=== PATIENT | female | born 1955 | race Caucasian/White ===

== ENCOUNTER 2017-05-15 13:23 | Day surgery (SDC) | payer OTHER, SELFPAY ==
[2017-05-15 13:45] VITALS: BP 161/97; PULSE 92; RESP 16; TEMP 36.8; O2SAT 96; BMI 27.4
--- NOTE | 2017-05-15 15:47 | PCM.DC.URO ---
Discharge Diet: Light diet - advance as tolerated Discharge Activity: Return to Normal Activity Call your doctor if you observe: Fever of 101 or Higher Allergies/Adverse Reactions: Allergies latex Allergy (Verified 05/13/17 15:48) Itching ciprofloxacin [From Cipro] Adverse Reaction (Verified 07/20/15 12:54) Nausea/Vom/Diarrhea ciprofloxacin HCl [From Cipro] Adverse Reaction (Verified 07/20/15 12:54) Nausea/Vom/Diarrhea morphine Adverse Reaction (Verified 07/20/15 12:54) Itching Medications to take at Discharge Cholecalciferol (VIT D3) [Vitamin D3] 1,000 unit PO DAILY 07/20/15 L.acidoph,Paracasei, B.lactis [Probiotic] 1 each PO DAILY 07/20/15 Multivitamins,Ther W-Minerals [Multivitamin With Minerals] 1 tablet PO DAILY 07/20/15 Ubidecarenone [Coq10] 50 mg PO DAILY 07/20/15 Loratadine [Claritin] 10 mg PO DAILY 05/13/17 Losartan Potassium [Cozaar] 25 mg PO DAILY 05/13/17 [place]-3 Fatty Acids [Fish Oil] 500 mg PO DAILY 05/13/17 Hydrocodone/Acetaminophen [[place] 5-325 Tablet] 1 ea PO Q4H PRN PRN #20 tab 05/15/17 The following prescriptions were given: Hydrocodone/Acetaminophen [[place] 5-325 Tablet] 1 ea PO Q4H PRN PRN #20 tab PRN Reason: Pain Primary Care Physician: Lizabeth Alaniz MD [Primary Care Provider] - Please Follow Up With: Luis Bingham MD When: in 2 weeks, please call to make an appointment.
--- NOTE | 2017-05-15 15:49 | PCM.OPRPT ---
Problem List (1) Renal calculus, left Status: Acute Report of Operation Date of Procedure: 05/15/17 Pre-Operative Diagnosis: Left renal calculi Post-Operative Diagnosis: Same Surgery/Procedure Performed:: Left extracorporeal shockwave lithotripsy Description of Surgical Findings:: 62-year-old female taken back to the operating room after smooth induction of general anesthesia she was placed supine on the lithotripter table there was a 7 8 mm stone in the left UPJ area and this was put in the F2 focal point of the lithotripter machine once the stone was localized we did 3000 shockwaves started at a rate of 90 is been increased the power the patient then had PVC contraction so we had the gait the shockwave and then we gated the shocks for the rest of the treatments at the end of the treatment cycle we could still see the stone fragments but they broken up pretty well in the left UPJ area expect these to pass within several days or week. Decided not to leave a stent. Patient anesthetic was reversed she was taken back to PACU in good condition minus see her back in several weeks with a KUB for follow-up. Type of Anesthesia:: General Drains: none - Admit VTE Documentation VTE Present on Admission: No VTE Mechan Device Prophylaxis: SCD's
[2017-05-15 15:58] VITALS: BP 151/87; BP 161/97; PULSE 94; RESP 16; TEMP 36.7; O2SAT 95
[2017-05-15 16:00] VITALS: BP 151/103; BP 161/97; PULSE 86; RESP 18; O2SAT 98
[2017-05-15] MEDS: Ketorolac 15 MG/ML Vial IV (16:03)
[2017-05-15 16:15] VITALS: BP 156/98; BP 161/97; PULSE 83; RESP 18; O2SAT 97
[2017-05-15 16:23] VITALS: BP 161/97; BP 162/98; PULSE 91; RESP 18; TEMP 36.3; O2SAT 96
[2017-05-15 17:02] VITALS: BP 161/97
== END 2017-05-15 17:06 | disposition home or self-care (01) ==
LOC: SDC 13:24 → AC 13:24
PROVIDERS: Family Provider Family Medicine; PCP Family Medicine; Visit Provider Urology
PROC: (CPT 50590; principal; 2017-05-15 15:35)
DX: N20.0 Calculus of kidney (principal); I10 Essential (primary) hypertension; K57.92 Diverticulitis of intestine, part unspecified, without perforation or abscess without bleeding; Z87.442 Personal history of urinary calculi; Z87.440 Personal history of urinary (tract) infections; Z79.899 Other long term (current) drug therapy
CPT/HCPCS: 00873; 50590; J7120; J2405

== ENCOUNTER → 2017-06-01 07:44 | Outpatient (CLI) | payer OTHER, SELFPAY ==
--- NOTE | 2017-06-01 07:47 | RAD_ITS ---
STUDY: X-RAY - ABDOMEN/PELVIS REASON FOR EXAM: Female, 62 years old. History of left renal calculi. Post ESWL. TECHNIQUE: Two AP supine views of the abdomen and pelvis. COMPARISON: Comparison is made with prior study dated May 11, 2017. FINDINGS: Normal visualized lung bases. There is a moderate amount of colonic fecal material. The patient is status post cholecystectomy. The previously seen calcification in the region of the left ureteropelvic junction is not seen at this time. Normal soft tissue structures. There are mild degenerative changes of the visualized lumbar spine. RAD/Abdomen Single View IMPRESSION: The previously seen calcification at the left ureteropelvic junction is not seen at this time. Electronically Signed: Ismael Galvin MD at 8:31 EST Tel [phone], Service support ,
== END ==
PROVIDERS: Family Provider Family Medicine; PCP Family Medicine; Visit Provider Urology
DX: N20.0 Calculus of kidney (principal)
CPT/HCPCS: 74018

== ENCOUNTER → 2018-02-25 07:19 | Outpatient (CLI) | payer OTHER, SELFPAY ==
--- NOTE | 2018-02-25 08:00 | US_ITS ---
STUDY: THYROID ULTRASOUND REASON FOR EXAM: Female, 62 years old. Thyroid disorder TECHNIQUE: Ultrasound evaluation of the thyroid was performed with real-time and static olsen-scale imaging. COMPARISON: 07/23/2016 FINDINGS: RIGHT LOBE: The right lobe of the thyroid gland measures 4.8 x 2.0 x 2.5 cm. There is a heterogeneous echotexture. Multiple nodules noted throughout the thyroid. Largest is in the inferior pole measuring 1.4 x 1 x 1.3 cm. Predominantly solid in nature. LEFT LOBE: The left lobe of the thyroid gland measures 4.7 x 2.1 x 1.9 cm. There is a heterogeneous echotexture. Multiple small nodules, largest is in the upper pole measuring 9 x 9 x 7 mm. Complex in nature. ISTHMUS: The isthmus measures 3 mm. The regional lymph nodes are normal. US/Thyroid IMPRESSION: Stable appearance of multiple nonspecific bilateral thyroid nodules. Electronically Signed: Chavez Blanco DO at 8:51 EST Tel , Service support ,
--- NOTE | 2018-02-25 08:20 | RAD_ITS ---
STUDY: X-RAY - ESOPHAGUS (BARIUM SWALLOW) WITH FLUOROSCOPY REASON FOR EXAM: Female, 62 years old. Dysphagia. TECHNIQUE: 21 view(s) of the esophagus were obtained following swallowing of barium. FLUOROSCOPY TIME (if supplied): (0:47) minutes/seconds COMPARISON: None. FINDINGS: There is no demonstrated esophageal foreign body. There is evidence of the tertiary contractions of the mid and distal portions of the esophagus. There is no evidence of obstruction. There is narrowing at the gastroesophageal junction. The patient ingested a 12 mm tablet of barium. The tablet is trapped at the gastroesophageal junction. Correlation with endoscopy is recommended There is atherosclerotic tortuosity of the aortic arch and descending thoracic aorta. Normal visualized pulmonary parenchyma. There are diffuse degenerative changes of the visualized thoracic spine. RAD/Esophagus Only IMPRESSION: Tertiary contractions of the mid and distal esophagus with narrowing at the gastroesophageal junction. There is trapping of the 12 mm tablet of barium at the gastroesophageal junction. Correlation with endoscopy is recommended. Electronically Signed: Ismael Galvin MD at 15:37 EST Tel [phone], Service support ,
[2018-02-25 11:12] LABS: Free T3 4.3 pg/mL (2.18-3.98); T4 Free Direct 1.27 ng/dL (0.76-1.46); Thyroid Stim Hormone (TSH) 2.25 uIU/mL (0.358-3.74)
[2018-02-25 15:32] LABS: Hematocrit 40.5 % (37-47); Hemoglobin 13.5 g/dl (12.0-15.0); Mean Corp Hgb Conc 33.3 g/gl (32-36); Mean Corpuscular Hgb 29.5 pg (27.0-32.0); Mean Corpuscular Volume 88.4 fL (81-99); Platelet Count 232 K/mm3 (150-450); RBC Distribution Width CV 12.6 % (11.6-14.6); RBC Distribution Width SD 40.4 fl (35.1-43.9); Red Blood Count 4.58 M/mm3 (4.2-5.4); White Blood Count 6.3 K/mm3 (4.4-11.0)
[2018-02-25 15:35] LABS: Scan Indicated on CBC? Y/N NO
[2018-02-25 16:01] LABS: ALB/GLOB Ratio 1.1 RATIO (0.9-2.4); AST(SGOT) 22 U/L (15-37); Alanine Aminotransfer ALT/SGPT 29 U/L (13-56); Alkaline Phosphatase 73 U/L (45-117); Anion Gap 6 (5-15); BUN 14 mg/dL (7-18); BUN/Creat Ratio 20.4 RATIO (10-20); Calcium,Total 9.3 mg/dL (8.5-10.1); Chloride 105 mmol/L (98-107); Creatinine, Serum 0.69 mg/dL (0.55-1.02); EST Glomerular Filtration Rate 93 mL/min (>60); Est Glom Filt Rate - Afr Amer 112 mL/min (>60); Globulin 3.6 g/dL (2.2-4.2); Glucose 95 mg/dL (74-106); Iron 45 ug/dL (50-170); Potassium 3.8 mmol/L (3.5-5.1); Protein, Total 7.6 g/dL (6.4-8.2); Sodium Level 139 mmol/L (136-145)
[2018-02-25 16:06] LABS: Vitamin B12 494 pg/mL (211-911)
== END ==
PROVIDERS: Family Provider Family Medicine; PCP Family Medicine; Referring Provider Nurse Practitioner; Visit Provider Nurse Practitioner
DX: E07.9 Disorder of thyroid, unspecified (principal); R53.82 Chronic fatigue, unspecified; R53.81 Other malaise; R13.10 Dysphagia, unspecified
CPT/HCPCS: 36415; 74220; 76536; 80053; 82607; 83540; 84439; 84443; 84481; 85027

== ENCOUNTER → 2018-11-19 | Outpatient (CLI) | payer OTHER, SELFPAY ==
[2018-02-25 13:41] VITALS: BMI 27.0
[2018-11-19 17:39] LABS: ALB/GLOB Ratio 1.3 RATIO (0.9-2.4); AST(SGOT) 21 U/L (15-37); Alanine Aminotransfer ALT/SGPT 34 U/L (13-56); Albumin, Serum 4.3 g/dL (3.2-5.0); Alkaline Phosphatase 79 U/L (45-117); Anion Gap 7 (5-15); BUN 14 mg/dL (7-18); BUN/Creat Ratio 17.6 RATIO (10-20); Calcium,Total 9.6 mg/dL (8.5-10.1); Chloride 107 mmol/L (98-107); Cholesterol 251 mg/dL (200); EST Glomerular Filtration Rate 78 mL/min (>60); Est Glom Filt Rate - Afr Amer 94 mL/min (>60); Globulin 3.4 g/dL (2.2-4.2); Glucose 92 mg/dL (74-106); High Density Lipoprotein 46 mg/dL; Potassium 3.9 mmol/L (3.5-5.1); Protein, Total 7.7 g/dL (6.4-8.2); Sodium Level 141 mmol/L (136-145); Triglycerides 125 mg/dL; Very Low Density Lipoprotein 25 mg/dL (5-40)
== END | disposition home or self-care (01) ==
LOC: MTLAB 16:28
PROVIDERS: Family Provider Family Medicine; PCP Family Medicine; Referring Provider Family Medicine; Visit Provider Family Medicine
DX: I10 Essential (primary) hypertension (principal)
CPT/HCPCS: 36415; 80053; 80061

== ENCOUNTER → 2019-05-05 14:36 | Outpatient (CLI) | payer OTHER, SELFPAY ==
[2019-05-05 13:57] VITALS: BMI 26.9
[2019-05-05 15:42] LABS: T4 Free Direct 1.24 ng/dL (0.76-1.46); Thyroid Stim Hormone (TSH) 1.49 uIU/mL (0.358-3.74)
[2019-05-07 15:24] LABS: Thyroid Peroxidase AB 11 IU/mL (0-34)
== END ==
PROVIDERS: PCP Family Medicine; Referring Provider Internal Medicine Endocrinology, Diabetes & Metabolism; Visit Provider Internal Medicine Endocrinology, Diabetes & Metabolism
DX: E04.9 Nontoxic goiter, unspecified (principal)
CPT/HCPCS: 36415; 84439; 84443; 86376

== ENCOUNTER → 2019-11-01 | Outpatient (CLI) | payer OTHER, SELFPAY ==
[2019-05-05 16:35] VITALS: BMI 27.0
[2019-11-05 09:08] LABS: Age Gdln ACOG Testing 30-65 (.)
[2019-11-05 11:59] LABS: HPV APTIMA, High Risk Negative (Negative); HPV Reflexed? YES, CHARGE PATIENT
== END | disposition home or self-care (01) ==
LOC: LABSPEC 11:47
PROVIDERS: PCP Family Medicine; Visit Provider Obstetrics & Gynecology
DX: Z12.4 Encounter for screening for malignant neoplasm of cervix (principal)
CPT/HCPCS: 87624; 88175; G0145

== ENCOUNTER → 2019-11-07 | Outpatient (CLI) | payer OTHER, SELFPAY ==
[2019-05-05 16:35] VITALS: BMI 27.0
[2019-11-07 17:39] LABS: Anion Gap 3 (5-15); BUN 13 mg/dL (7-18); BUN/Creat Ratio 17.4 RATIO (10-20); Calcium,Total 9.9 mg/dL (8.5-10.1); Chloride 107 mmol/L (98-107); Creatinine, Serum 0.74 mg/dL (0.55-1.02); EST Glomerular Filtration Rate 84 mL/min (>60); Est Glom Filt Rate - Afr Amer 101 mL/min (>60); Glucose 92 mg/dL (74-106); Potassium 4.2 mmol/L (3.5-5.1); Sodium Level 138 mmol/L (136-145)
== END | disposition home or self-care (01) ==
LOC: MFPLAB 15:11
PROVIDERS: PCP Family Medicine; Referring Provider Family Medicine; Visit Provider Family Medicine
DX: I10 Essential (primary) hypertension (principal)
CPT/HCPCS: 36415; 80048

== ENCOUNTER → 2019-11-17 | Outpatient (CLI) | payer OTHER, SELFPAY ==
[2019-05-05 16:35] VITALS: BMI 27.0
--- NOTE | 2019-11-17 07:20 | BI_ITS ---
MAMMOGRAPHY - BILATERAL SCREENING REASON FOR EXAM: Female, 64 years old. Routine annual screening examination. PERTINENT HISTORY: Non-contributory. History of prior bilateral breast reduction surgery. TECHNIQUE: Digital bilateral breast martha (3D mammographic acquisition) in the CC and MLO projections. 2-D mediolateral oblique (MLO) and craniocaudad (CC) views of both breasts were obtained. CAD: Full Field Digital Mammography with Computer Added Detection was performed. COMPARISON: Comparison is made with prior examination dated 01/02/2014 and 09/27/2012. FINDINGS: Breast Composition: The breasts are heterogeneously dense, which may obscure small masses. There are no dominant masses or suspicious calcifications. Stable small benign appearing bilateral axillary lymph nodes. No other significant abnormalities are identified. There has been no significant change since the prior study. BI/SCREEN MAMM (CAD) W/MARTHA BILAT IMPRESSION: Stable bilateral screening mammogram. Yearly follow-up mammogram recommended. (A) ASSESSMENT CATEGORY: BIRADS Category 2: Benign. A letter regarding these results will be sent to the patient by the facility within 30 days. Approximately 10% of breast cancers are not detected by mammography. A normal mammogram should not delay biopsy of a clinically suspicious abnormality. [id number] Electronically Signed: Ismael Galvin, at 8:39 EDT , Service support ,
== END | disposition home or self-care (01) ==
LOC: OPBI 07:05
PROVIDERS: PCP Family Medicine; Referring Provider Obstetrics & Gynecology; Visit Provider Obstetrics & Gynecology
DX: Z12.31 Encounter for screening mammogram for malignant neoplasm of breast (principal)
CPT/HCPCS: 77063; 77067

== ENCOUNTER → 2020-03-09 17:20 | Outpatient (CLI) | payer OTHER, SELFPAY ==
[2019-05-05 16:35] VITALS: BMI 27.0
--- NOTE | 2020-03-09 17:31 | CT_ITS ---
STUDY: CT ABDOMEN AND PELVIS WITH CONTRAST REASON FOR EXAM: Female, 64 years old. LLQ pain x 3 months, hx diverticulosis, cholecystectomy RADIATION DOSAGE (If Supplied By Facility): CTDIvol = ( 12.83 ) mGy, DLP = ( 755.87 ) mGycm TECHNIQUE: Transaxial images were obtained from the dome of the diaphragm to the symphysis pubis without oral contrast. Oral and amp;amp;amp; IV Readi-CAT and amp;amp;amp; 100mL Isovue-300 was administered. Sagittal and coronal images were reconstructed. Individualized dose optimization techniques were used for this CT. COMPARISON: None. FINDINGS: The visualized lung bases are unremarkable. The visualized portions of the heart are within normal limits. There are 2 liver cysts the largest measures 7 mm. There are surgical clips in the gallbladder fossa consistent with a prior cholecystectomy. Normal spleen. Normal pancreas. Normal bilateral adrenal glands. Bilateral renal cysts are noted the largest measures 2 cm is in the right kidney. Normal visualized stomach. Normal small intestine. Normal colon. The appendix is visualized and appears normal. Normal abdominal aorta. Normal inferior vena cava. Normal retroperitoneum. Normal urinary bladder. Normal abdominal wall. Normal osseous structures. CT/Abdomen/Pelvis WITH Contrast IMPRESSION: There are 2 liver cysts the largest measures 7 mm. Bilateral renal cysts are noted the largest measures 2 cm is in the right kidney. Electronically Signed: Shadia Henriquez, at 8:19 EST Tel , Service support ,
[2020-03-09 17:41] LABS: CREATININE FINGERSTICK 0.8 mg/dL (0.55-1.02); EGFR FINGERSTICK > 60.0000 mL/min (>60)
== END ==
PROVIDERS: PCP Family Medicine; Referring Provider Family Medicine; Visit Provider Family Medicine
DX: R10.9 Unspecified abdominal pain (principal)
CPT/HCPCS: 74177; Q9967

== ENCOUNTER 2020-05-23 18:00 | Outpatient (RCR) | payer OTHER, SELFPAY ==
[2019-05-05 16:35] VITALS: BMI 27.0
--- NOTE | 2020-04-24 09:24 | HP.PTEVAL_ITS ---
Patient's Visit Information ZACH PHILLIPS is a 64 year old F referred to Physical Therapy by Dr. Lizabeth Alaniz MD with a diagnosis of L chest wall pain. Date of Evaluation: 04/18/20 Physical Therapist: Milton Del Valle DPT - Visit Plan Frequency: 1-2x /Week Duration: 6 Weeks Plan: Start with US to posterior aspect of 11th/12th ribs and erector spinea. Work on thoracic mobility as tolerated. I had her get an tj wrap to use for stability with work activities. Once pain as started to reduce, introduce core stability. May work into some rib mobilization, but I want to start less aggressive due to higher levels of pain. - Subjective Pt. is here today for her initial evaluation with diagnosis of L chest wall pain. Pt. reports reports a 5 months ago she fell when she tripped at work and fell on her L side, but felt like she caught her self a bit. Pt. reprots having a lot of bruising on her L side, which is now gone. Pt. reprots still having pain that starts at her mid thoracic spine that wraps around to her anterior chest wall. Pt. reports pain with lifting, raising her arm, mild pain with deep breating and any pressure to her ribs is painful. Pt. denies N/T. Pt. reports no pain in shoulder. 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 Pt. has had a CT scan, but no xrays. Pt. is hopeful to reduce her symptoms in order to get back to all work and recreational activities without limitations. - Pain L lower thoracic spine Pain Intensity (Out of 10): 4 Pain Intensity Range: 2, 6 L side of 11/12th ribs Pain Intensity (Out of 10): 4 Pain Intensity Range: 1, 8 - Objective POSTURE: Pt. has normal posture in stance. Normal iliac crest heights, normal thoracic posture. PALPATION: Pt. is very tender at her 12th and 11th ribs throughouts. Pt. also has tenderness at the rib origin as well and her L thoracic erector spinea. NEURO: Normal throughout. ROM: thoracic spine: Pt. has normal flexion, mod loss with L rotation, mod loss with extension and mod loss with R SB. Pain as her limiting factor. Pt. has normal lumbar ROM without limitations. Normal shoudler ROM without limitations. MMT: RUE- 5/5 throughout. L UE 4+/5 with increase in pain at L lateral thoracic chest pain (rib region). SPECIAL TESTING: Pt. has increased pain at T9-T12 with PAs, resulting in local pain, but also radiating pain into her L rib region. Pt. is tender throughout 11th and 12th ribs on L side, no R sided pain. - Special Tests Thoracic Sitting: Flexion - Mechanical Response: No effect Thoracic Sitting: Flexion - Symptoms During Testing: No effect Thoracic Sitting: Flexion - Symptoms After Testing: No effect Thoracic Sitting: Extension - Mechanical Response: No effect Thoracic Sitting: Extension - Symptoms During Testing: Increases Thoracic Sitting: Extension - Symptoms After Testing: Worse Thoracic Sitting: Right rotation - Mechanical Response: No effect Thoracic Sitting: Right Rotation - Symptoms During Testing: Increases Thoracic Sitting: Right Rotation - Symptoms After Testing: Worse Thoracic Sitting: Left rotation - Mechanical Response: No effect Thoracic Sitting: Left Rotation - Symptoms During Testing: Increases Thoracic Sitting: Left Rotation - Symptoms After Testing: Worse - Goals Goal 1:: LTG: pt. to be I with HEP. Goal Time Frame: 4-6 Weeks Goal 2:: STG: Pt. to sleep on L side without increase in symptoms. Goal Time Frame: 2-4 Weeks Goal 3:: LTG: Pt. to complete all work related duties inlcuing lifting over head, carrying, bending over and lifting heavier objects from floor to waist height. Goal Time Frame: 4-6 Weeks Goal 4:: STG: Pt. to have increased thoracic mobility to full without increase in symptoms. Goal Time Frame: 2-4 Weeks Goal 5:: LTG: Pt. to have no pain with all UE strength testing. Goal Time Frame: 4-6 Weeks Goal 6:: STG: pt. to have decreased pain to palpation of L 11th/12th ribs. Goal Time Frame: 2-4 Weeks - Rehabilitation Potential Physical Therapy Diagnosis: Pt. has signs and symptoms consistent with L chest wall pain from mechanical fall. Pt. is very tender to palpation of L distal ribs and pain with spring at her lower thoracics spine, hypomobility noted in this region as well. I would like to work on reducing symptoms, progressing to thoracic mobility as tolerated. Rehabilitation Potential: Good - Anticipated Interventions Patient/Client Instruction: Educate patient on: Condition, Plan of Care, Risk Factors, Benefits of Fitness Program For the Purpose of:: To facilitate caregiver knowledge, To improve self management, To prevent re-injury, To improve ability to perform tasks related to life management, To improve tolerance to ADL's Therapeutic Exercise to Include: Strength training, Postural training, Flexibilty training, Passive ROM, Active ROM, Dynamic Lumbar Stabilization, Karen Exercises For the Purpose of:: To decrease pain, To decrease swelling/inflammation, To increase ROM, To improve nutrient delivery to tissue, To increase oxygenation perfusion, To improve muscle performance and motor function, To improve ability to perform ADL's, To increase tolerance to activity/condition/position, To improve health of tissue, To decrease soft tissue restriction Manual Therapy Techniques to Include: Mobilization, Passive ROM, Soft tissue m obilization For the Purpose of:: To decrease pain, To increase ROM, To improve nutrient delivery to tissue, To increase oxygenation perfusion, To improve muscle performance and motor function, To improve ability to perform ADL's, To improve health of tissue, To decrease soft tissue restriction, To increase flexibility/ROM Ultrasound (thermal/non thermal): Yes For the Purpose of:: To decrease pain, To decrease swelling/inflammation, To increase ROM, To improve nutrient delivery to tissue, To increase oxygenation perfusion, To improve muscle performance and motor function Thank you for the opportunity to evaluate your patient. For Medicare and Medicare HMO plans, please review the plan of care and approve it. It will need to be FAXED BACK to us at [phone] for Medicare purposes. For Medicare only, by signing this I certify the plan of care. Please let me know if there are questions or concerns regarding this plan of care. Physician Signature: Date:
== END 2020-05-23 19:00 | disposition home or self-care (01) ==
LOC: PT 18:00
PROVIDERS: PCP Family Medicine; Referring Provider Family Medicine; Visit Provider Family Medicine
DX: R07.89 Other chest pain (principal)
CPT/HCPCS: 97035; 97110; 97161

== ENCOUNTER → 2020-11-29 | Outpatient (CLI) | payer OTHER, SELFPAY ==
[2019-05-05 16:35] VITALS: BMI 27.0
[2020-12-01 09:13] LABS: H. PYLORI STOOL AG Negative (Negative)
== END | disposition home or self-care (01) ==
LOC: LABSPEC 10:42
PROVIDERS: PCP Family Medicine; Visit Provider Nurse Practitioner Family
DX: K52.9 Noninfective gastroenteritis and colitis, unspecified (principal)
CPT/HCPCS: 87177; 87209; 87493

== ENCOUNTER → 2020-12-05 10:22 | Outpatient (CLI) | payer OTHER, SELFPAY ==
[2019-05-05 16:35] VITALS: BMI 27.0
--- NOTE | 2020-12-05 10:39 | US_ITS ---
STUDY: ABDOMINAL ULTRASOUND REASON FOR EXAM: Female, 65 years old. GASTROENTERITIS-ABD PAIN LT SIDED TECHNIQUE: Transabdominal ultrasound was performed with real-time and static olsen scale imaging. TECHNICAL QUALITY: Adequate. COMPARISON: Comparison is made with prior study on 07/25/2016. FINDINGS: Liver: The liver measures 14.7 cm. There is normal echogenicity of the liver. The bile ducts are within normal limits. There is hepatic color flow. The direction of portal flow is hepatopetal. There is no demonstrated mass lesion. Portal vein measurement: Gallbladder: The patient is status post cholecystectomy. Common Bile Duct (C.B.D.): The common bile duct measures 7 mm. Pancreas: Normal size of the head, body and tail of the pancreas. There is normal echogenicity of the pancreas. There is no demonstrated pancreatic mass or cyst. Spleen: Normal size of the spleen. The spleen measures 10.8 cm x 4 cm x 4.8 cm. Right Kidney: Normal size of the right kidney. The right kidney measures 10.6 cm x 5.5 cm x 4.6 cm. Normal renal cortex. The right cortex measures 1.5 cm. There is a 1.5 cm x 1.4 cm x 1.7 cm cyst. There is no right hydronephrosis. Left Kidney: Normal size of the left kidney. The left kidney measures 12 cm x 5.1 cm x 5.1 cm. Normal renal cortex. The left cortex measures 1.4 cm. There is no demonstrated renal mass or cyst. There is no left hydronephrosis. Aorta: Unremarkable I.V.C.: The IVC is patent. There is no ascites. US/Abdomen Complete IMPRESSION: Right renal cyst. Electronically Signed: Ismael Galvin MD at 15:24 EDT , Service support ,
== END ==
PROVIDERS: PCP Family Medicine; Referring Provider Nurse Practitioner Family; Visit Provider Nurse Practitioner Family
DX: K52.9 Noninfective gastroenteritis and colitis, unspecified (principal)
CPT/HCPCS: 76700

== ENCOUNTER → 2021-02-05 15:11 | Outpatient (CLI) | payer OTHER, SELFPAY ==
[2021-02-05 18:30] LABS: CRP < 2.90 mg/L (0.0-3.0)
[2021-02-07 17:07] LABS: Endomysial Antibody IgA Negative (Negative)
[2021-02-08 08:18] LABS: Immunoglobulin A 171 mg/dL (87-352); t-Transglutaminase IgA <2 U/mL (0-3)
== END ==
PROVIDERS: PCP Family Medicine; Referring Provider Internal Medicine Gastroenterology; Visit Provider Internal Medicine Gastroenterology
DX: R19.7 Diarrhea, unspecified (principal)
CPT/HCPCS: 36415; 82784; 83516; 86140; 86255

== ENCOUNTER 2021-10-01 11:51 | Emergency (ER) | payer OTHER, SELFPAY ==
[2021-10-01 11:52] VITALS: BP 216/117; PULSE 100; RESP 18; TEMP 36.6; O2SAT 98; BMI 28.3
[2021-10-01 12:33] VITALS: BP 155/137
--- NOTE | 2021-10-01 12:50 | EKG12_ITS ---
Test Reason : Blood Pressure : / mmHG Vent. Rate : 105 BPM Atrial Rate : 105 BPM P-R Int : 142 ms QRS Dur : 090 ms QT Int : 338 ms P-R-T Axes : 034 -12 026 degrees QTc Int : 446 ms Sinus tachycardia Otherwise normal ECG Confirmed by PREETI CHAMBERLAIN, JUWAN ([id number]), commissioning editor LUIZ MOJICA ([id number]) on 10/02/2021 10:12:48 AM Referred By: TIANA/ALFA Confirmed By:JUWAN ÁLVAREZ MD
--- NOTE | 2021-10-01 12:55 | RAD_ITS ---
STUDY: X-RAY CHEST REASON FOR EXAM: Female, 66 years old. Chest pain TECHNIQUE: Single AP portable view of the chest. COMPARISON: Comparison is made with prior study dated 07/20/2015. FINDINGS: The lungs are clear and expanded. There is no demonstrated pleural abnormality. There is borderline cardiomegaly. Normal mediastinum and brett. Normal visualized pulmonary arteries. There is atherosclerotic tortuosity of the aortic arch and descending thoracic aorta. Normal visualized thoracic spine. Normal visualized ribs, clavicles, and shoulders. Hiatal hernia. RAD/Chest 1 View (Portable) IMPRESSION: No acute abnormality is seen. Hiatal hernia. Electronically Signed: Ismael Galvin MD at 13:09 EDT ,
[2021-10-01 13:03] LABS: Absolute Lymphocyte Count 0.87 X10^3/uL (0.83-4.51); Absolute Neutrophil Count 5.4 X10^3/uL (2.0-7.7); Basophil# 0.03 X10^3/uL; Basophil% 0.4 % (0-1); Eosinophil# 0.15 X10^3/uL; Eosinophils% 2.2 % (0-5); Hematocrit 41.7 % (37-47); Lymphocyte # 0.87 X10^3/ul (0.83-4.51); Lymphocyte % 12.7 % (19-41); Mean Corp Hgb Conc 33.6 g/dL (32-36); Mean Corpuscular Hgb 29.4 pg (27.0-32.0); Mean Corpuscular Volume 87.4 fL (81-99); Mean Platelet Vol. 9.6 fl (6.2-12.0); Monocyte# 0.37 X10^3/uL; Monocyte% 5.4 % (0-10); NRBC Flagged by Analyzer 0 % (0-5); Neutrophil # 5.39 X10^3/uL (2.7-7.7); Neutrophil % 78.9 % (47-70); Platelet Count 198 K/mm3 (150-450); RBC Distribution Width SD 38.8 fl (35.1-43.9); Red Blood Count 4.77 M/mm3 (4.2-5.4); White Blood Count 6.8 K/mm3 (4.4-11.0)
[2021-10-01] MEDS: Aspirin 81 MG TAB.CHEW 324 MG PO (13:10)
[2021-10-01 13:15] LABS: Anion Gap 3 (5-15); BUN 13 mg/dL (7-18); Calcium,Total 9.6 mg/dL (8.5-10.1); Chloride 107 mmol/L (98-107); Creatinine, Serum 0.72 mg/dL (0.55-1.02); EST Glomerular Filtration Rate 86 mL/min (>60); Est Glom Filt Rate - Afr Amer 104 mL/min (>60); Estimated Creatinine Clearance 71.03 ml/min; Glucose 119 mg/dL (74-106); Potassium 3.6 mmol/L (3.5-5.1); Sodium Level 139 mmol/L (136-145); Troponin-I HS (w/2H Reflex) 7 pg/mL (3.0-54.0)
[2021-10-01 14:15] VITALS: BP 148/84; PULSE 80; RESP 18; O2SAT 95
[2021-10-01 15:00] LABS: Reflex Troponin-HS? (from REC) Y
--- NOTE | 2021-10-01 15:12 | EX.ED.DYSGE1 ---
HPI History of Present Illness Chief Complaint: Hypertension Informant: patient Narrative Narrative: Patient presents secondary to hypertension as well as intermittent chest pain for the past 2 weeks. She is been having periods of intermittent dizziness with exertion that gets better when she sits to rest. She is had some intermittent upper chest pain but denies pain at this time. She does note that her blood pressure has been quite elevated recently. She has been on losartan 25 mg daily for some time with no recent change in her medication. PFSH PFS Medical History Anxiety and depression Contact dermatitis due to poison [place] Fibromyalgia Gallstones GI problem Hives HTN (hypertension) Kidney stones Multiple thyroid nodules Recurrent UTI Seasonal allergies Home Medications loratadine 10 mg PO DAILY 05/13/17 [History Last Taken Unknown] diphenhydramine HCl 25 mg capsule 25 mg PO QHS PRN 02/03/18 [History Last Taken Unknown] loperamide 1 mg/7.5 mL oral liquid 2 mg PO Q1-4H PRN 02/03/18 [History Last Taken Unknown] losartan 25 mg tablet 25 mg PO DAILY 02/25/18 [History Last Taken Unknown] prednisolone 15 mg/5 mL oral solution 15 mg PO DAILY #90 ml 09/12/21 [Rx Last Taken Unknown] Allergy/AdvReac Type Severity Reaction Status Date / Time latex Allergy Itching Verified 10/01/21 11:53 ciprofloxacin [From Cipro] AdvReac Nausea/Vom/ Verified 10/01/21 11:53 Diarrhea ciprofloxacin HCl AdvReac Nausea/Vom/ Verified 10/01/21 11:53 [From Cipro] Diarrhea morphine AdvReac Itching Verified 10/01/21 11:53 Family History Mother Arthritis Diabetes Hypertension Dementia Hyperlipidemia Thyroid disorder Osteoporosis CVA (cerebral vascular accident) Father Lung cancer Abdominal aortic aneurysm COPD (chronic obstructive pulmonary disease) Brother Asthma Son Asthma Surgical History H/O bilateral breast reduction surgery H/O lithotripsy H/O: Hx of cholecystectomy Social History Smoking Status: Never smoker second hand exposure: No alcohol intake: current alcohol intake frequency: a few times a month substance use type: does not use ROS ROS ED Constitutional Constitutional ED: Denies chills or fever(s) Eyes Eyes: Denies change in vision ENT ENT ED: Denies sore throat Cardiovascular Cardiovascular: Denies chest pain Respiratory/Chest Respiratory/Chest: Denies cough or dyspnea Gastrointestinal Gastrointestinal: Denies abdominal pain, nausea or vomiting Genitourinary Genitourinary ED: Denies dysuria Musculoskeletal Musculoskeletal: Denies back pain or neck pain Integumentary Denies rash Neurologic Neurologic: Denies headache(s) or weakness Allergic/Immunologic Allergic/Immunologic ED: Denies urticaria EXAM Physical Exam Const Vital Signs: 10/01/21 11:52 10/01/21 12:33 10/01/21 14:15 Temperature 97.8 F Temperature Source Temporal Pulse Rate 100 80 Respiratory Rate 18 18 Blood Pressure 216/117 H 155/137 H 148/84 H Blood Pressure Mean 150 143 105 Pulse Ox 98 95 Oxygen Delivery Method Room Air Room Air 10/01/21 14:16 10/01/21 15:26 10/01/21 16:15 Temperature Temperature Source Pulse Rate 81 Respiratory Rate 16 Blood Pressure 135/93 H 128/85 H Blood Pressure Mean 107 99 Pulse Ox 96 Oxygen Delivery Method Room Air Room Air Positive well nourished and well developed General Appearance ED: well developed HEENT Reports moist mucous membranes Eyes PERRL and EOMs intact bilaterally Neck supple Chest Wall inspection of chest normal and palpation of chest normal Resp normal respiratory effort and clear to auscultation bilaterally Cardio regular rate and regular rhythm GI non-tender Palpation: soft Back/Spine no CVA tenderness Extremity normal to inspection Neuro oriented x3 Sensorium / Orientation: alert Psych mental status grossly normal Skin no rashes or lesions noted MDM MDM MDM Narrative Medical decision making narrative: EKG, chest x-ray, lab work obtained. Lab Data Attestation: I reviewed the patient's lab results. Labs: Laboratory Results - last 24 hr 10/01/21 10/01/21 12:35 12:35 WBC 6.8 RBC 4.77 Hgb 14.0 Hct 41.7 MCV 87.4 MCH 29.4 MCHC 33.6 RDW Std Deviation 38.8 RDW Coeff of Neymar 12.0 Plt Count 198 MPV 9.6 Immature Gran % (Auto) 0.400 Neut % (Auto) 78.9 H Lymph % (Auto) 12.7 L [place] % (Auto) 5.4 Eos % (Auto) 2.2 Baso % (Auto) 0.4 Absolute Neuts (auto) 5.4 Absolute Lymphs (auto) 0.87 Nucleated RBC % 0 Sodium 139 Potassium 3.6 Chloride 107 Carbon Dioxide 29.0 Anion Gap 3 L BUN 13 Creatinine 0.72 Estim Creat Clear Calc 71.03 Est GFR (MDRD) Af Amer 104 Est GFR (MDRD) Non-Af 86 BUN/Creatinine Ratio 18.0 Glucose 119 H Calcium 9.6 Troponin I High Sens 7 Radiography Chest X-Ray - ED: 1 View, Read by ED Physician, Normal, Heart, Lungs and Mediastinum Diagnostic Testing: Clinical Impression(s) from Imaging Studies Chest X-Ray 10/01/21 12:55 IMPRESSION: No acute abnormality is seen. Hiatal hernia. Electronically Signed: Ismael Galvin MD at 13:09 EDT , EKG Initial EKG: Attestation: I personally reviewed and interpreted this EKG as follows: Interpretation: Sinus Tachycardia (Sinus tach at 105 with no acute ischemia.) Treatment and Re-Evaluation Narrative: On repeat evaluation patient resting comfortably. Initial lab work unremarkable with a troponin of 7. EKG reveals no ischemia. Chest x-ray unremarkable per my interpretation. Patient's blood pressure was initially quite elevated at 216 systolic. She states she does have whitecoat syndrome. It came down to 160s without any intervention. I was going to give her 5 mg of Lopressor, however when we went back to recheck her blood pressure it came down into the 140s and as low as 128 systolic without requiring the medication. Repeat troponin is obtained and returns at 14.1. Delta is less than 20 therefore she is safe to be discharged home for close follow-up. Return instructions were given. Discharge Plan Triage Chief Complaint: Hypertension ED Provider: Alayna Pierre Dx/Rx/DC Orders Clinical Impression: Chest pain, Hypertension Instructions: ED Chest Pain, Uncertain Cause, ED Hypertension, Established Prescriptions: No Action losartan 25 mg tablet 25 mg PO DAILY RF: 0 diphenhydramine HCl [Benadryl] 25 mg capsule 25 mg PO QHS PRNRF: 0 loperamide [Imodium A-D] 1 mg/7.5 mL liquid 2 mg PO Q1-4H PRNRF: 0 prednisolone 15 mg/5 mL solution 15 mg PO DAILY Qty: 90 RF: 0 loratadine 10 MG tablet 10 mg PO DAILY RF: 0 Primary Care Provider: Lizabeth Alaniz Referrals: Lizabeth Alaniz MD [Primary Care Provider] - 1 Week Disposition Disposition: Home, Self Care
[2021-10-01 15:26] VITALS: BP 135/93; PULSE 81; RESP 16; O2SAT 96
[2021-10-01 16:15] VITALS: BP 128/85
[2021-10-01 16:55] VITALS: BP 135/96; PULSE 75; RESP 16; O2SAT 98
[2021-10-01 16:59] LABS: Troponin-I HS 14 pg/mL (3.0-54.0)
== END 2021-10-01 16:55 | disposition home or self-care (01) ==
PROVIDERS: Emergency Provider Emergency Medicine; PCP Family Medicine; Visit Provider Emergency Medicine
DX: R07.9 Chest pain, unspecified (principal); I10 Essential (primary) hypertension
CPT/HCPCS: 71045; 80048; 84484; 85025; 93005; 99284; A4216

== ENCOUNTER → 2021-10-23 | Outpatient (CLI) | payer OTHER, SELFPAY ==
[2021-10-23 12:40] LABS: AST(SGOT) 25 U/L (15-37); Alanine Aminotransfer ALT/SGPT 31 U/L (13-56); Cholesterol 263 mg/dL (200); High Density Lipoprotein 42 mg/dL; Triglycerides 189 mg/dL; Very Low Density Lipoprotein 38 mg/dL (5-40)
== END | disposition home or self-care (01) ==
LOC: MFPLAB 10:56
PROVIDERS: PCP Family Medicine; Visit Provider Family Medicine
DX: E78.00 Pure hypercholesterolemia, unspecified (principal)
CPT/HCPCS: 36415; 80061; 84450; 84460

== ENCOUNTER → 2022-02-26 | Outpatient (CLI) | payer OTHER, SELFPAY ==
--- NOTE | 2022-02-26 11:51 | RAD_ITS ---
STUDY: X-RAY - LEFT KNEE REASON FOR EXAM: Female, 66 years old. Leg pain. TECHNIQUE: 4 view(s) of the knee. COMPARISON: None. FINDINGS: Osteopenia. Mild arthrosis of the medial compartment without osteophytes. Mild arthrosis of the lateral compartment without osteophyte formation. Slight lateral tilt and subluxation of the patella with mild arthrosis of the patellofemoral compartment. The soft tissue structures are normal. RAD/Knee 4 or More Views IMPRESSION: Osteopenia with mild tricompartmental arthrosis. No acute abnormality, chondrocalcinosis or erosive changes. Electronically Signed: Tarik Figueroa, at 15:45 EST ,
--- NOTE | 2022-02-26 12:06 | RAD_ITS ---
STUDY: X-RAY - PELVIS AND LEFT HIP REASON FOR EXAM: Female, 66 years old. Leg pain. TECHNIQUE: 3 views of the pelvis and hip. COMPARISON: None. FINDINGS: There is a non-specific bowel gas pattern. Normal visualized soft tissue structures. Osteopenia. Normal bilateral iliac wings, sacroiliac joints and visualized sacrum. Normal bilateral superior and inferior pubic rami. Mild arthrosis of the symphysis pubis. Normal bilateral ischial tuberosities. Mild arthrosis of both hips. RAD/HIP, UNI W/ Pelvis 2-3 Views IMPRESSION: Osteopenia with mild arthrosis of the symphysis pubis and both hips. No acute abnormality, evidence of erosive changes or fusion. Electronically Signed: Tarik Figueroa, at 15:46 EST ,
== END | disposition home or self-care (01) ==
LOC: MTRAD 11:50
PROVIDERS: PCP Family Medicine; Referring Provider Family Medicine; Visit Provider Family Medicine
DX: M79.605 Pain in left leg (principal)
CPT/HCPCS: 73502; 73564

== ENCOUNTER 2022-03-19 08:00 | Outpatient (RCR) | payer OTHER, SELFPAY ==
--- NOTE | 2022-03-06 18:51 | HP.PTEVAL_ITS ---
Patient's Visit Information ZACH PHILLIPS is a 66 year old F referred to Physical Therapy by Dr. Lizabeth Alaniz MD with a diagnosis of L leg pain. Date of Evaluation: 03/06/22 Physical Therapist: GARRETT DiazT, OCS, CSCS - Visit Plan Frequency: 3x /Week Duration: 2-4 Weeks Plan: Pt presentss as HS strain today although mechanism of injury does not match(no HAILEY). will treat 3x/week for 2-4 weeks for/... 1. HS rollout/massage L and stretch with L knee ROM. 2. isometric L HS ex progressing as tolerated to PRE. 3. US nonthermal to L HS distal mid substance. 4. gait and functional progression when needed. - Subjective L knee pain for weeks. Forgot script today. Has OA in hip and knee. X ray showed degenerative changes and osteophytes. Not sure of reason for onset. Pain is back o f L knee and calf and HS. Pain is up to 8/10 getting up in am. Gets better as the day goes on if she keeps moving. getting up from sitting down is the worst. Sleep is interrupted as it is hard to get comfy. Retired. No other treatments, takes tylenol, had x ray. Was walking 6000 steps a day prior and yoga poses. Cannot do those now. Hobbies include gardening, walking and baking more and baking is painful but tolerable. Bending knee really hurts. basic ADLS getting done, hard to get off toilet and sit down low. Dr Alaniz sent for left L pain. - Pain L post leg Pain Intensity (Out of 10): 4 Pain Intensity Range: 3, 8 - Objective Walks with stiff left leg unwiliig to bend knee at first but I into PT. Sit to stand keep L knee as straight as possible but I. Steps prefers to use R only up and down. Painful to use L. Max tender over distal body of L HS. Max apinful and unable to hold contraction of L HS in prone and seated. -40 90/90 test L and -15 R. has full aROM B knees but hesitant to actively bend L knee. hip and ankle AROM WFL and without pain. - valgus and varus test, - bounce home, - ant drawer, - scour, slight + L patellar grind. strength L HS 3- and L quad 4-, pain with HS, R knee is 4/5. reflexes 2/3 patella and achilles. Sensation WNL to gross light touch. - Balance/Special Test Scores Lower Extremity Functional Score: 28 - Goals Goal 1:: Full aROM L knee without hesitation in standing Goal Time Frame: 2-4 Weeks Goal 2:: patient feel knee/leg pain L is 90% improved and 1/10 at worst and comfortable at rest. Goal Time Frame: 2-4 Weeks Goal 3:: Walk and climb steps normal without antalgia. Goal Time Frame: 2-4 Weeks Goal 4:: I approp management of condition Goal Time Frame: 2-4 Weeks Goal 5:: LEFS 55 Goal Time Frame: 2-4 Weeks - Rehabilitation Potential Physical Therapy Diagnosis: L leg pain presenting as HS strain. Rehabilitation Potential: Good - Anticipated Interventions Patient/Client Instruction: Educate patient on: Condition, Plan of Care For the Purpose of:: To decrease pain, To increase ROM, To improve muscle performance and motor function, To increase tolerance to activity/condition/position, To improve ability of physical actions for home/community/work/leisure, To improve gait and locomotor functions Therapeutic Exercise to Include: Strength training, Flexibilty training, Passive ROM, Active ROM For the Purpose of:: To decrease pain, To decrease swelling/inflammation, To in crease ROM, To improve muscle performance and motor function, To improve ability of physical actions for home/community/work/leisure Manual Therapy Techniques to Include: Mobilization, Passive ROM, Soft tissue mobilization For the Purpose of:: To decrease pain, To decrease swelling/inflammation, To increase ROM Cryotherapy (ice pack, ice massage): Yes Ultrasound (thermal/non thermal): Yes - nonthermal For the Purpose of:: To decrease pain, To decrease swelling/inflammation Thank you for the opportunity to evaluate your patient. For Medicare and Medicare HMO plans, please review the plan of care and approve it. It will need to be FAXED BACK to us at [phone] for Medicare purposes. For Medicare only, by signing this I certify the plan of care. Please let me know if there are questions or concerns regarding this plan of care. Physician Signature: Date:
--- NOTE | 2022-04-03 12:24 | HP.PT.NRP ---
ZACH PHILLIPS was seen in my office for initial evaluation on 03/06/22. The following Plan of Care was established for this patient: Initial Frequency: 3x /Week Initial Duration: 2-4 Weeks Patient/Client Instruction: Educate patient on: Condition, Plan of Care For the Purpose of:: To decrease pain, To increase ROM, To improve muscle performance and motor function, To increase tolerance to activity/condition/position, To improve ability of physical actions for home/community/work/leisure, To improve gait and locomotor functions Therapeutic Exercise to Include: Strength training, Flexibilty training, Passive ROM, Active ROM For the Purpose of:: To decrease pain, To decrease swelling/inflammation, To increase ROM, To improve muscle performance and motor function, To improve ability of physical actions for home/community/work/leisure Manual Therapy Techniques to Include: Mobilization, Passive ROM, Soft tissue mobilization For the Purpose of:: To decrease pain, To decrease swelling/inflammation, To increase ROM Cryotherapy (ice pack, ice massage): Yes Ultrasound (thermal/non thermal): Yes - nonthermal For the Purpose of:: To decrease pain, To decrease swelling/inflammation This patient was last seen in our office 03/19/22. Pertinent comments regarding their Physical therapy will appear below: Pt seen 5 visits of POC and was not progressing, Was sent for ortho consult adn will now have new chart started from orthopedic doctor. discontinue current chart. At this point I will be discontinuing this patient from physical therapy. I would be happy to see this patient again in the future if found appropriate by the physician. Thank you! Jhon Tejada, DPT, OCS, CSCS Balance/Gait/Functional tests - Balance/Special Test Scores Lower Extremity Functional Score: 28
== END 2022-03-19 19:00 | disposition home or self-care (01) ==
LOC: PT 08:00
PROVIDERS: PCP Family Medicine; Referring Provider Family Medicine; Visit Provider Family Medicine
DX: M79.605 Pain in left leg (principal)
CPT/HCPCS: 97014; 97035; 97110; 97161; G0283

== ENCOUNTER 2022-05-12 17:30 | Outpatient (RCR) | payer MEDICARE, OTHER, SELFPAY ==
--- NOTE | 2022-04-23 08:08 | HP.PTEVAL_ITS ---
Patient's Visit Information ZACH PHILLIPS is a 66 year old F referred to Physical Therapy by HARINI Rice with a diagnosis of L knee pain, synovial martinez cyst left knee and LBP. Date of Evaluation: 04/09/22 Physical Therapist: Milton Del Valle DPT - Visit Plan Frequency: 2x /Week Duration: 6 Weeks Plan: Start with gentle progressive ROM. Add in mat quad, glute, HS strengthening as tolerated. Progress as tolerated. Add in HS and quad stretching. - Subjective Pt. is here today for her initial evaluation with diagnosis of L knee pain, synovial martinez cyst left knee and LBP. Pt. reports having just finished PT about 1 month ago and eventually saw her physician which diagnosed her with a bakers cyst. Pt. reports doing better now, but is still not 100%. Pt. is walking better, but is still having some pain. Pt. denies N/T. Her main concern now is her knee weakness and soreness. Pt. used to walk a decent about a few miles a day, but has not been able to do this at all since her knee pain. Pt. is able to drive. pain with walking and stairs. Unable to squat. Pt. reports no issues with ROM of her knee currently. No issues with sleeping as well. She is hopeful to get back to all of her recreational activities without limitation from her knee. - Pain L knee Pain Intensity (Out of 10): 2 Pain Intensity Range: 0, 5 Comment: posterior aspect - Objective POSTURE: Pt. has slight increased wt. shift to R side. Lack TKE on LLE, other [place] normal. PALPATION: Slight tenderness at posterior and medial aspect of L knee. Mild joint effusion noted. No warmth or bruising noted. NEURO: normal. ROM: L knee: 0-2-121deg. R knee 0-0-130deg. TIght B HS noted. MMT: RLE 5/5 throughout. LLE: ankle 5/5; knee: ext 4/5, flexion 4/5 mild increase with both. GAIT: Pt. ambulates without AD, but has slight antalgic pattern during L stance phase. She tends to have limited knee flexion during swing, and slight loss of TKE during stance. STAIRS: Increased pain with descending early heel off noted. - Balance/Special Test Scores Lower Extremity Functional Score: 47 - Goals Goal 1:: LTG: pt. to be I with HEP. Goal Time Frame: 4-6 Weeks Goal 2:: STG: Pt. to have full L knee ROM without increase in symptoms. Goal Time Frame: 2-4 Weeks Goal 3:: LTG: Pt. to have no marked edema in her L knee. Goal Time Frame: 4-6 Weeks Goal 4:: LTG: Pt. to have full motion without increase in symptoms of her L knee. Goal Time Frame: 4-6 Weeks Goal 5:: LTG: Pt. to have symmetrical strength of BLEs allowing for increased ability to complete all functional mobility. Goal Time Frame: 4-6 Weeks Goal 6:: LTG: Pt. to be able to ambulate without increase in L knee pain with normal gait pattern. Goal Time Frame: 4-6 Weeks - Rehabilitation Potential Physical Therapy Diagnosis: Pt. has signs and symptoms consistent with L knee pain. Pt. wanted to focus on this at this point in time. She has slight loss in ROM and loss in strength as well. Focus on some mat exercises progressing ROM as tolerated. Hold from excessive WBing currently ie squatting and step ups. Progress as tolerated. Rehabilitation Potential: Good - Anticipated Interventions Patient/Client Instruction: Educate patient on: Condition, Plan of Care, Risk Factors, Benefits of Fitness Program For the Purpose of:: To facilitate caregiver knowledge, To improve self management, To prevent re-injury, To improve ability to perform tasks related to life management, To improve tolerance to ADL's Therapeutic Exercise to Include: Strength training, Power training, Endurance training, Postural training, Flexibilty training, Gait and locomotor training, Passive ROM, Active ROM For the Purpose of:: To decrease pain, To decrease swelling/inflammation, To increase ROM, To improve nutrient delivery to tissue, To increase oxygenation perfusion, To improve muscle performance and motor function, To improve ability to perform ADL's, To decrease level of supervision to perform tasks, To improve ability of physical actions for home/community/work/leisure, To improve gait and locomotor functions, To improve health of tissue, To decrease soft tissue restriction Cryotherapy (ice pack, ice massage): Yes Ultrasound (thermal/non thermal): Yes For the Purpose of:: To decrease pain, To decrease swelling/inflammation, To increase ROM Thank you for the opportunity to evaluate your patient. For Medicare and Medicare HMO plans, please review the plan of care and approve it. It will need to be FAXED BACK to us at [phone] for Medicare purposes. For Medicare only, by signing this I certify the plan of care. Please let me know if there are questions or concerns regarding this plan of care. Physician Signature: Date:
== END 2022-05-12 19:00 | disposition home or self-care (01) ==
LOC: PT 17:30
PROVIDERS: PCP Family Medicine; Referring Provider Physician Assistant; Visit Provider Physician Assistant
DX: M25.562 Pain in left knee (principal); M71.22 Synovial cyst of popliteal space [Baker], left knee; M51.16 Intervertebral disc disorders with radiculopathy, lumbar region
CPT/HCPCS: 97035; 97110; 97161

== ENCOUNTER → 2022-07-16 | Outpatient (CLI) | payer MEDICARE, OTHER, SELFPAY ==
[2022-07-16 13:35] LABS: Anion Gap 8 (5-15); BUN 13 mg/dL (7-18); BUN/Creat Ratio 18.3 RATIO (10-20); Calcium,Total 9.7 mg/dL (8.5-10.1); Chloride 108 mmol/L (98-107); Cholesterol 256 mg/dL (200); Creatinine, Serum 0.71 mg/dL (0.55-1.02); EST Glomerular Filtration Rate 88 mL/min (>60); Est Glom Filt Rate - Afr Amer 106 mL/min (>60); Glucose 86 mg/dL (74-106); High Density Lipoprotein 39 mg/dL; Potassium 4.3 mmol/L (3.5-5.1); Sodium Level 139 mmol/L (136-145); Triglycerides 180 mg/dL; Very Low Density Lipoprotein 36 mg/dL (5-40)
== END | disposition home or self-care (01) ==
LOC: MFPLAB 10:10
PROVIDERS: PCP Family Medicine; Referring Provider Family Medicine; Visit Provider Family Medicine
DX: I10 Essential (primary) hypertension (principal); E78.00 Pure hypercholesterolemia, unspecified
CPT/HCPCS: 36415; 80048; 80061

== ENCOUNTER → 2023-03-02 | Outpatient (CLI) | payer MEDICARE, OTHER, SELFPAY ==
--- NOTE | 2023-03-02 15:29 | US_ITS ---
INDICATION: LLQ PAIN EXAMINATION: Ultrasound US Pelvis Non OB Complete With Transvaginal Imaging TECHNIQUE: Transabdominal and transvaginal pelvic ultrasound was performed. Grayscale, spectral waveform, and color flow Doppler evaluation of the adnexa. COMPARISON: None. FINDINGS: UTERUS: Anteverted. The uterus measures 7.3 x 4 x 2.8 cm. There is no uterine mass. The endometrial stripe measures 3 mm in AP diameter which is within normal limits. RIGHT OVARY: Measures 2.8 x 1.6 x 1.7 cm. Non-enlarged, normal echogenicity. There is normal arterial inflow and venous outflow present in the right ovary. LEFT OVARY: Not visualized. FREE FLUID: None. US/Pelvic w/ Transvaginal IMPRESSION: Normal pelvic ultrasound. Electronically Signed: Feliciano Dominguez MD at 21:56 EST ,
== END | disposition home or self-care (01) ==
LOC: US 15:28
PROVIDERS: PCP Family Medicine; Referring Provider Family Medicine; Visit Provider Family Medicine
DX: R10.32 Left lower quadrant pain (principal)
CPT/HCPCS: 76830; 76856

== ENCOUNTER → 2023-03-06 | Outpatient (CLI) | payer MEDICARE, OTHER, SELFPAY ==
[2023-03-06 15:36] LABS: Absolute Lymphocyte Count 1.68 X10^3/uL (0.83-4.51); Absolute Neutrophil Count 5.1 X10^3/uL (2.0-7.7); Basophil# 0.06 X10^3/uL; Basophil% 0.8 % (0-1); Eosinophil# 0.33 X10^3/uL; Eosinophils% 4.4 % (0-5); Hematocrit 42.3 % (37-47); Hemoglobin 13.9 g/dL (12.0-15.0); Lymphocyte # 1.68 X10^3/ul (0.83-4.51); Lymphocyte % 22.2 % (19-41); Mean Corp Hgb Conc 32.9 g/dL (32-36); Mean Corpuscular Hgb 29.1 pg (27.0-32.0); Mean Corpuscular Volume 88.7 fL (81-99); Mean Platelet Vol. 10.1 fl (6.2-12.0); Monocyte# 0.43 X10^3/uL; Monocyte% 5.7 % (0-10); NRBC Flagged by Analyzer 0 % (0-5); Neutrophil # 5.06 X10^3/uL (2.7-7.7); Neutrophil % 66.6 % (47-70); Platelet Count 278 K/mm3 (150-450); RBC Distribution Width CV 12.2 % (11.6-14.6); RBC Distribution Width SD 39.6 fl (35.1-43.9); Red Blood Count 4.77 M/mm3 (4.2-5.4); White Blood Count 7.6 K/mm3 (4.4-11.0)
[2023-03-06 16:15] LABS: ALB/GLOB Ratio 1.1 RATIO (0.9-2.4); AST(SGOT) 25 U/L (15-37); Alanine Aminotransfer ALT/SGPT 36 U/L (13-56); Albumin, Serum 4.2 g/dL (3.2-5.0); Alkaline Phosphatase 68 U/L (45-117); Anion Gap 7 (5-15); BUN 18 mg/dL (7-18); BUN/Creat Ratio 22.2 RATIO (10-20); Calcium,Total 10.8 mg/dL (8.5-10.1); Chloride 106 mmol/L (98-107); Creatinine, Serum 0.81 mg/dL (0.55-1.02); EST Glomerular Filtration Rate 75 mL/min (>60); Est Glom Filt Rate - Afr Amer 91 mL/min (>60); Globulin 3.8 g/dL (2.2-4.2); Glucose 99 mg/dL (74-106); Potassium 3.8 mmol/L (3.5-5.1); Sodium Level 139 mmol/L (136-145); Thyroid Stim Hormone (TSH) 1.59 uIU/mL (0.358-3.74)
== END | disposition home or self-care (01) ==
LOC: MFPLAB 11:33
PROVIDERS: PCP Family Medicine; Visit Provider Family Medicine
DX: R00.0 Tachycardia, unspecified (principal)
CPT/HCPCS: 36415; 80053; 84443; 85025

== ENCOUNTER → 2023-03-30 | Outpatient (CLI) | payer MEDICARE, OTHER, SELFPAY ==
--- NOTE | 2023-03-30 13:32 | CT_ITS ---
STUDY: CT ABDOMEN AND PELVIS WITH CONTRAST REASON FOR EXAM: Female, 67 years old. Left-sided abdominal pain and diarrhea. RADIATION DOSAGE (If Supplied By Facility): CTDIvol = ( 14.79 ) mGy, DLP = ( 809.91 ) mGycm TECHNIQUE: Transaxial images were obtained from the dome of the diaphragm to the symphysis pubis without oral contrast. Oral and amp; IV Readi-CAT and amp; 100mL Isovue-300 was administered. Sagittal and coronal images were reconstructed. 3-D images were reconstructed. Individualized dose optimization techniques were used for this CT. COMPARISON: Comparison is made with prior study dated March 09, 2020. FINDINGS: The visualized lung bases are unremarkable. The visualized portions of the heart are within normal limits. Stable 7 mm cyst in the lower aspect of the right lobe of the liver. There are surgical clips in the gallbladder fossa consistent with a prior cholecystectomy. Normal spleen. Normal pancreas. Normal bilateral adrenal glands. Stable small bilateral renal cysts. Normal visualized stomach. Normal small intestine. Normal colon. The appendix is visualized and appears normal. There is scattered atherosclerotic calcification of the abdominal aorta, without a demonstrated aneurysm. Normal inferior vena cava. Normal retroperitoneum. Normal urinary bladder. Normal abdominal wall. There are degenerative changes of the visualized lumbar spine. CT/Abdomen/Pelvis WITH Contrast IMPRESSION: Stable hepatic cyst and renal cyst. Electronically Signed: Ismael Galvin MD at 15:28 EST ,
== END | disposition home or self-care (01) ==
LOC: CT 13:32
PROVIDERS: PCP Family Medicine; Referring Provider Family Medicine; Visit Provider Family Medicine
DX: R10.32 Left lower quadrant pain (principal)
CPT/HCPCS: 74177; Q9967

== ENCOUNTER → 2023-07-17 | Outpatient (CLI) | payer MEDICARE, OTHER, SELFPAY ==
[2023-07-17 12:35] LABS: Protein, Urine (Random) < 6.0 mg/dL (<11.9)
[2023-07-17 12:59] LABS: AST(SGOT) 30 U/L (15-37); Alanine Aminotransfer ALT/SGPT 40 U/L (13-56); Anion Gap 6 (5-15); BUN 14 mg/dL (7-18); BUN/Creat Ratio 17.4 RATIO (10-20); Calcium,Total 10.1 mg/dL (8.5-10.1); Chloride 108 mmol/L (98-107); Cholesterol 251 mg/dL (200); EST Glomerular Filtration Rate 76 mL/min (>60); Est Glom Filt Rate - Afr Amer 92 mL/min (>60); Glucose 106 mg/dL (74-106); High Density Lipoprotein 40 mg/dL; Potassium 4.1 mmol/L (3.5-5.1); Sodium Level 140 mmol/L (136-145); Thyroid Stim Hormone (TSH) 1.25 uIU/mL (0.358-3.74); Triglycerides 171 mg/dL; Very Low Density Lipoprotein 34 mg/dL (5-40)
== END | disposition home or self-care (01) ==
LOC: MTLAB 10:20
PROVIDERS: PCP Family Medicine; Referring Provider Family Medicine; Visit Provider Family Medicine
DX: I10 Essential (primary) hypertension (principal); E78.00 Pure hypercholesterolemia, unspecified
CPT/HCPCS: 36415; 80048; 80061; 82570; 84156; 84443; 84450; 84460

== ENCOUNTER → 2023-07-28 | Outpatient (CLI) | payer MEDICARE, OTHER, SELFPAY ==
--- NOTE | 2023-07-28 16:09 | BI_ITS ---
MAMMOGRAPHY - BILATERAL SCREENING REASON FOR EXAM: Female, 68 years old. Routine annual screening examination. PERTINENT HISTORY: Non-contributory. History of prior bilateral breast reduction surgery. TECHNIQUE: Digital bilateral breast martha (3D mammographic acquisition) in the CC and MLO projections. 2-D mediolateral oblique (MLO) and craniocaudad (CC) views of both breasts were obtained. CAD: Full Field Digital Mammography with Computer Added Detection was performed. COMPARISON: Comparison is made with prior study dated November 17, 2019 and January 02, 2014. FINDINGS: Breast Composition: The breasts are heterogeneously dense, which may obscure small masses. There are no dominant masses or suspicious calcifications. Stable bilateral fat containing axillary lymph nodes. No other significant abnormalities are identified. There has been no significant change since the prior study. BI/SCRN MAMM (CAD)W/MARTHA BILAT IMPRESSION: Stable bilateral screening mammogram. Yearly follow-up mammogram recommended. (A) ASSESSMENT CATEGORY: BIRADS Category 2: Benign. A letter regarding these results will be sent to the patient by the facility within 30 days. Approximately 10% of breast cancers are not detected by mammography. A normal mammogram should not delay biopsy of a clinically suspicious abnormality. [id number] Electronically Signed: Ismael Galvin MD at 9:08 EDT ,
== END | disposition home or self-care (01) ==
LOC: OPBI 16:06
PROVIDERS: PCP Family Medicine; Referring Provider Family Medicine; Visit Provider Family Medicine
DX: Z12.31 Encounter for screening mammogram for malignant neoplasm of breast (principal)
CPT/HCPCS: 77063; 77067

== ENCOUNTER 2023-12-03 21:58 | Emergency (ER) | payer MEDICARE, OTHER, SELFPAY ==
[2023-12-03 21:59] VITALS: BP 194/86; PULSE 94; RESP 18; TEMP 36.7; O2SAT 97; BMI 25.7
--- NOTE | 2023-12-03 22:11 | EKG12_ITS ---
Test Reason : CP Blood Pressure : / mmHG Vent. Rate : 092 BPM Atrial Rate : 092 BPM P-R Int : 136 ms QRS Dur : 092 ms QT Int : 368 ms P-R-T Axes : 020 -16 009 degrees QTc Int : 455 ms Normal sinus rhythm Incomplete right bundle branch block Possible Anterior infarct , age undetermined Abnormal ECG Confirmed by Harvey Laboy ([id number]), manager editorial LUIZ MOJICA ([id number]) on 12/07/2023 9:12:14 AM Referred By: COURTNEY Confirmed By:Harvey Laboy
--- NOTE | 2023-12-03 22:12 | EDS_ITS ---
HPI History of Present Illness Chief Complaint: Chest Pain Informant: patient Narrative Narrative: 9 PM little over an hour ago resting indigestion symptoms with pressure in her mid back. No pain down the arms. When upstairs felt cold sweats. Nausea and dyspnea going to the ambulance. Symptoms resolved as she got in the ambulance. No cough. Hypertension, denies diabetes. Hyperlipidemia diet controlled. Denies family history of MIs at young age. Denies tobacco use. Denies recent travel, surgeries, or immobilization. no history of PE or DVT. Currently symptoms resolved. Similar symptoms few years ago workup in the ED that was negative follow-up with a stress test per patient. No history of heart caths. Prior Similar Symptoms: Yes and - (Years ago with a negative workup) CVD Risk Factors: Positive for Hypertension and Hypercholesterolemia; Negative for Diabetes, Family History 1' </=55 or Smoking PE Risk Factors: Negative for Recent Travel/Surgery, Recent Immobilization or Prior DVT or PE PFSH PFS Medical History Contact dermatitis due to poison [place] Kidney stones Fibromyalgia Multiple thyroid nodules Hives HTN (hypertension) GI problem Gallstones Recurrent UTI Anxiety and depression Seasonal allergies Home Medications ?Medication ?Instructions ?Recorded ?Last Taken ?Type diphenhydramine HCl 25 mg capsule 25 mg PO QHS PRN allergic reaction 02/03/18 Unknown History (Benadryl) loperamide 1 mg/7.5 mL oral liquid 2 mg PO Q1-4H PRN loose stool 02/03/18 Unknown History (Imodium A-D) amlodipine 10 mg tablet 10 mg PO DAILY 12/03/23 Unknown History losartan 100 1 tab PO DAILY 12/03/23 Unknown History mg-hydrochlorothiazide 25 mg tablet multivitamin (Daily Multi-Vitamin 1 tab PO DAILY 12/03/23 Unknown History tablet) Allergy/AdvReac Type Severity Reaction Status Date / Time latex Allergy Itching Verified 12/03/23 21:59 ciprofloxacin (From Cipro) AdvReac Nausea/Vom/ Verified 12/03/23 21:59 Diarrhea ciprofloxacin HCl (From AdvReac Nausea/Vom/ Verified 12/03/23 21:59 Cipro) Diarrhea morphine AdvReac Itching Verified 12/03/23 21:59 Family History Mother Arthritis Diabetes Hypertension Dementia Hyperlipidemia Thyroid disorder Osteoporosis CVA (cerebral vascular accident) Father Lung cancer Abdominal aortic aneurysm COPD (chronic obstructive pulmonary disease) Brother Asthma Son Asthma Surgical History H/O lithotripsy Hx of cholecystectomy H/O bilateral breast reduction surgery H/O: Social History Smoking Status: Never smoker second hand exposure: No alcohol intake: current alcohol intake frequency: a few times a month substance use type: does not use ROS ROS ED Constitutional Constitutional ED: Denies chills, fever(s) or sweats Eyes Eyes: Denies change in vision ENT ENT ED: Denies dysphagia or sore throat Cardiovascular Cardiovascular: Reports chest pain; Denies leg edema, palpitations or racing heartbeat Respiratory/Chest Respiratory/Chest: Denies cough, dyspnea or dyspnea on exertion Gastrointestinal Gastrointestinal: Denies abdominal pain, diarrhea, nausea or vomiting Genitourinary Genitourinary ED: Denies dysuria, hematuria or urinary frequency Musculoskeletal Musculoskeletal: Denies back pain, extremity pain or neck pain Integumentary Denies rash or wounds Neurologic Neurologic: Denies headache(s), paresthesias or weakness EXAM Physical Exam Const Vital Signs: 12/03/23 21:59 12/03/23 21:59 12/03/23 22:43 Temperature 98.1 F Temperature Source Oral Pulse Rate 94 Respiratory Rate 18 Respiratory Effort Normal Non-Labored Blood Pressure 194/86 H Blood Pressure Mean 122 Pulse Ox 97 Oxygen Delivery Method Room Air 12/03/23 23:00 12/04/23 00:00 Temperature Temperature Source Pulse Rate 87 85 Respiratory Rate 16 20 H Respiratory Effort Blood Pressure 143/90 H 161/89 H Blood Pressure Mean 104 113 Pulse Ox 100 97 Oxygen Delivery Method Room Air Positive well nourished and well developed General Appearance ED: well developed and NAD HEENT Reports moist mucous membranes normocephalic and atraumatic Eyes EOMs intact bilaterally and conjunctivae normal General Eye ED: Yes normal appearance of both eyes Neck no lymphadenopathy and supple General: Negative for tenderness Chest Wall Chest: Negative for tenderness Resp normal respiratory effort and normal air movement Effort and Inspection: symmetric chest movement; Negative for respiratory distress Cardio regular rate, regular rhythm and no murmurs Peripheral Pulses: pulses 2+ throughout GI normal to inspection, nondistended, normoactive bowel sounds and non-tender Palpation: Negative for guarding or rebound tenderness present Back/Spine no CVA tenderness and no thoracic nor lumbar tenderness Extremity normal to inspection General Extremety ED: Negative for edema or tenderness General Extremity: Negative for edema Neuro oriented x3 and no sensory deficits noted Sensorium / Orientation: awake and alert Skin no rashes or lesions noted and no wounds Heart Score History: Slightly/Non-Suspicious ECG: Normal Age: >/= 65 years Risk Factors: 1 or 2 Risk Factors Troponin: </= Normal Limit Score: 3 MDM MDM MDM Narrative Medical decision making narrative: Interventions / MDM: Differential diagnosis: Atypical chest pain Diagnosis considered but do not suspect: Pulmonary embolism however hypoxia or tachycardia. Cardiac dissection however no sharp tearing pain to the back. Pulses are intact and symmetric x 4. My EKG interpretation: Sinus rate of 92, no ST changes. T wave inversion V1 V2. Similar findings September 2021. Imaging independently reviewed and interpreted by myself: 2 view chest x-ray no acute process. External documents reviewed: Stress test report 2015 negative. Test considered but not ordered:N/A ED course: Patient's symptoms improving after evaluation. Aspirin ordered. Cardiac workup initiated. 2325: Remains symptom-free. Initial troponin negative. Normal creatinine and hemoglobin. Will await delta troponin. 0050: Delta troponin negative per algorithm. Remains symptom-free. Discharged with outpatient follow-up with strict return precautions. All questions were answered. Re-evaluation: stable Disposition discussed with patient/family/significant other: Patient significant other Case discussed with consulting clinician: N/A This note was generated with [employer] dictation software. It may contain incorrect words, spelling, and punctuation that were not noted in checking the note before signing. Lab Data Attestation: I reviewed the patient's lab results. Labs: Laboratory Results - last 24 hr 12/03/23 12/04/23 22:07 00:18 WBC 6.4 RBC 4.72 Hgb 13.7 Hct 41.1 MCV 87.1 MCH 29.0 MCHC 33.3 RDW Std Deviation 40.7 RDW Coeff of Neymar 12.8 Plt Count 251 MPV 9.9 Immature Gran % (Auto) 0.300 Neut % (Auto) 59.3 Lymph % (Auto) 27.9 [place] % (Auto) 6.4 Eos % (Auto) 5.2 H Baso % (Auto) 0.9 Absolute Neuts (auto) 3.8 Absolute Lymphs (auto) 1.78 Nucleated RBC % 0 Sodium 138 Potassium 3.7 Chloride 103 Carbon Dioxide 25.0 Anion Gap 10 BUN 18 Creatinine 1.01 Estim Creat Clear Calc 53.80 Est GFR (MDRD) Af Amer 70 Est GFR (MDRD) Non-Af 58 L BUN/Creatinine Ratio 17.8 Glucose 168 H Calcium 10.1 Troponin I High Sens 5 10 Radiography Diagnostic Testing: Clinical Impression(s) from Imaging Studies Chest X-Ray 12/03/23 22:25 IMPRESSION: No radiographic evidence of acute cardiopulmonary disease. Electronically Signed: Carter Howard MD at 22:58 EDT , Discharge Plan Triage Chief Complaint: Chest Pain ED Provider: Jermaine New Dx/Rx/DC Orders Clinical Impression: Chest pain, Hypertension Instructions: ED Chest Pain, Uncertain Cause Prescriptions: No Action diphenhydramine HCl [Benadryl] 25 mg capsule 25 mg PO QHS PRN (Reason: allergic reaction) loperamide [Imodium A-D] 1 mg/7.5 mL liquid 2 mg PO Q1-4H PRN (Reason: loose stool) losartan-hydrochlorothiazide 100-25 mg tablet 1 tab PO DAILY amlodipine 10 mg tablet 10 mg PO DAILY multivitamin [Daily Multi-Vitamin] Tablet 1 tab PO DAILY Primary Care Provider: Lizabeth Alaniz Referrals: Lizabeth Alaniz MD [Primary Care Provider] - 3-5 Days Activity Restrictions/Additional Instructions: Your cardiac workup is negative. Blood pressure elevated improving without any interventions. Follow-up with your doctor for outpatient further testing. If your symptoms recur and worsens, return to the ED for reevaluation. Print Language: Bengali Disposition Disposition: Home, Self Care
--- NOTE | 2023-12-03 22:25 | RAD_ITS ---
EXAM: XR CHEST, 2 VIEWS CLINICAL INDICATION: chest pain TECHNIQUE: Frontal and lateral views of the chest. COMPARISON: No relevant prior studies available. FINDINGS: LUNGS AND PLEURAL SPACES: Unremarkable. No consolidation or edema. No pneumothorax. No effusion. HEART: Unremarkable. Cardiac silhouette not enlarged. MEDIASTINUM: Central airways and mediastinal contour are unremarkable. BONES/JOINTS: Unremarkable. No acute fracture. SOFT TISSUES: Unremarkable. RAD/Chest PA and Lateral IMPRESSION: No radiographic evidence of acute cardiopulmonary disease. Electronically Signed: Carter Howard MD at 22:58 EDT ,
[2023-12-03 22:34] LABS: Absolute Lymphocyte Count 1.78 X10^3/uL (0.83-4.51); Absolute Neutrophil Count 3.8 X10^3/uL (2.0-7.7); Basophil# 0.06 X10^3/uL; Basophil% 0.9 % (0-1); Eosinophil# 0.33 X10^3/uL; Eosinophils% 5.2 % (0-5); Hematocrit 41.1 % (37-47); Hemoglobin 13.7 g/dL (12.0-15.0); Lymphocyte # 1.78 X10^3/ul (0.83-4.51); Lymphocyte % 27.9 % (19-41); Mean Corp Hgb Conc 33.3 g/dL (32-36); Mean Corpuscular Volume 87.1 fL (81-99); Mean Platelet Vol. 9.9 fl (6.2-12.0); Monocyte# 0.41 X10^3/uL; Monocyte% 6.4 % (0-10); NRBC Flagged by Analyzer 0 % (0-5); Neutrophil # 3.77 X10^3/uL (2.7-7.7); Neutrophil % 59.3 % (47-70); Platelet Count 251 K/mm3 (150-450); RBC Distribution Width CV 12.8 % (11.6-14.6); RBC Distribution Width SD 40.7 fl (35.1-43.9); Red Blood Count 4.72 M/mm3 (4.2-5.4); White Blood Count 6.4 K/mm3 (4.4-11.0)
[2023-12-03 22:57] LABS: Anion Gap 10 (5-15); BUN 18 mg/dL (7-18); BUN/Creat Ratio 17.8 RATIO (10-20); Calcium,Total 10.1 mg/dL (8.5-10.1); Chloride 103 mmol/L (98-107); Creatinine, Serum 1.01 mg/dL (0.55-1.02); EST Glomerular Filtration Rate 58 mL/min (>60); Est Glom Filt Rate - Afr Amer 70 mL/min (>60); Glucose 168 mg/dL (74-106); Potassium 3.7 mmol/L (3.5-5.1); Sodium Level 138 mmol/L (136-145); Troponin-I HS (w/2H Reflex) 5 pg/mL (3.0-54.0)
[2023-12-03 23:00] VITALS: BP 143/90; PULSE 87; RESP 16; O2SAT 100
[2023-12-04] VITALS: BP 161/89; PULSE 85; RESP 20; O2SAT 97
[2023-12-04 00:22] LABS: Reflex Troponin-HS? (from REC) Y
[2023-12-04 00:49] LABS: Troponin-I HS 10 pg/mL (3.0-54.0)
[2023-12-04 01:00] VITALS: BP 130/88; PULSE 72; RESP 18; O2SAT 98
[2023-12-04 01:01] VITALS: BP 130/88; PULSE 72; RESP 16; TEMP 36.7; O2SAT 97
== END 2023-12-04 01:03 | disposition home or self-care (01) ==
PROVIDERS: Emergency Provider Emergency Medicine; PCP Family Medicine; Visit Provider Emergency Medicine
DX: R07.9 Chest pain, unspecified (principal); I10 Essential (primary) hypertension; E78.00 Pure hypercholesterolemia, unspecified; Z79.899 Other long term (current) drug therapy; Z90.49 Acquired absence of other specified parts of digestive tract
CPT/HCPCS: 71046; 80048; 84484; 85025; 93005; 99284; A4216

== ENCOUNTER → 2023-12-29 | Outpatient (CLI) | payer MEDICARE, OTHER, SELFPAY ==
--- NOTE | 2023-12-29 17:37 | STRESSREP ---
Stress Test Report Exercise myocardial perfusion stress test. 68-year-old lady with a history of chest pain chest pain Stress protocol: Resting EKG demonstrates normal sinus rhythm with a rate of 78 bpm resting blood pressure is 144/86 mmHg. The patient exercised according to the regular Dean protocol for a total duration of 8 minutes attaining a maximum heart rate of 134 bpm which was 87% of maximum predicted heart rate; the maximum workload was 10.1 metabolic equivalents. At rest there were no ST or T wave changes noted to suggest ischemia and at peak exercise upsloping ST changes only were noted which did not meet the criteria for ischemia. No clinical angina was noted the test was terminated due to the target heart rate being achieved/fatigue. The peak blood pressure was 162/84 mmHg. Rate-pressure product was 20,006. Myocardial perfusion protocol. 11.5 mCi of technetium 99m sestamibi was injected at rest. The patient exercised according to regular Dean protocol for total duration of 8 minutes and at peak exercise 32.2 mCi of technetium 99m sestamibi was injected stress images were obtained stress and rest images were reconstructed in comparing the short axis vertical long and horizontal long axis. Gated images were also obtained. Perfusion SPECT analysis: Review of the stress images demonstrate normal uptake of tracer noted in all areas of the myocardium. The resting images similarly demonstrate normal uptake of tracer noted in all areas of the myocardium. No areas of reversibility are noted to suggest ischemia no previous infarct was noted. Gated SPECT analysis: The gated ejection fraction is 72%. Conclusion: Normal exercise myocardial perfusion stress test at a high workload Preserved ejection fraction.
== END | disposition home or self-care (01) ==
LOC: CVS 06:00
PROVIDERS: PCP Family Medicine; Referring Provider Family Medicine; Visit Provider Family Medicine
DX: R07.9 Chest pain, unspecified (principal)
CPT/HCPCS: 78452; 93017; A9500; A4216

== ENCOUNTER → 2024-01-06 | Outpatient (CLI) | payer MEDICARE, OTHER, SELFPAY ==
--- NOTE | 2024-01-06 07:35 | RAD_ITS ---
STUDY: X-RAY - ESOPHAGUS (BARIUM SWALLOW) WITH FLUOROSCOPY REASON FOR EXAM: Female, 68 years old. Worsening dysphagia. TECHNIQUE: 68 fluoroscopic view(s) of the esophagus were obtained following swallowing of barium. FLUOROSCOPY TIME (if supplied): (1 minute and 24 seconds.) minutes/seconds. 38.3 mGy. COMPARISON: Comparison is made with prior study February 25, 2018. FINDINGS: There is no demonstrated esophageal foreign body. There is evidence of a tertiary contractions of the mid and distal portion of the esophagus. There is circumferential wall thickening at the gastroesophageal junction. The patient ingested half of the 12 mm tablet of barium. The tablet is trapped at the gastroesophageal junction. Endoscopic correlation recommended. There is atherosclerotic tortuosity of the aortic arch and descending thoracic aorta. Normal visualized pulmonary parenchyma. There are diffuse degenerative changes of the visualized thoracic spine. RAD/Esophagus Dual Contrast IMPRESSION: Tertiary contractions of the mid and distal esophagus with narrowing at the gastroesophageal junction as described. There is trapping of the tablet at the gastroesophageal junction. Endoscopic correlation recommended. Electronically Signed: Ismael Galvin MD at 9:37 EDT ,
== END | disposition home or self-care (01) ==
LOC: RAD 07:34
PROVIDERS: PCP Family Medicine; Referring Provider Internal Medicine Gastroenterology; Visit Provider Internal Medicine Gastroenterology
DX: R13.10 Dysphagia, unspecified (principal)
CPT/HCPCS: 74221

== ENCOUNTER → 2024-08-08 | Outpatient (CLI) | payer MEDICARE, OTHER, SELFPAY ==
[2024-08-08 11:43] LABS: Protein, Urine (Random) 6.4 mg/dL (0.0-12.0); Protein:Creat Ratio 144 mg/g CRE (0-200)
[2024-08-08 13:30] LABS: AST(SGOT) 32 U/L (<=31); Alanine Aminotransfer ALT/SGPT 30 U/L (<=34); Anion Gap 13 (5-15); BUN 17 mg/dL (4-19); BUN/Creat Ratio 21.9 RATIO (10-20); Calcium,Total 10.5 mg/dL (7.6-11.0); Carbon Dioxide 21.2 mmol/L (21.0-32.0); Chloride 103 mmol/L (98-108); Cholesterol 266 mg/dL (<=200); Creatinine, Serum 0.76 mg/dL (0.70-1.20); EST Glomerular Filtration Rate 85 (>60); Glucose 105 mg/dL (70-99); High Density Lipoprotein 39 mg/dL; Low Density Lipoprotein Calc. 187 mg/dL; Potassium 3.8 mmol/L (3.3-5.1); Sodium Level 137 mmol/L (133-145); Triglycerides 199 mg/dL; Very Low Density Lipoprotein 40 mg/dL (5-40); cholesterol:hdl ratio screen 6.84
== END | disposition home or self-care (01) ==
LOC: MFPLAB 10:04
PROVIDERS: PCP Family Medicine; Referring Provider Family Medicine; Visit Provider Family Medicine
DX: E78.00 Pure hypercholesterolemia, unspecified (principal); I10 Essential (primary) hypertension
CPT/HCPCS: 36415; 80048; 80061; 82570; 84156; 84443; 84450; 84460

== ENCOUNTER → 2024-11-08 | Outpatient (CLI) | payer MEDICARE, OTHER, SELFPAY | END | disposition home or self-care (01) | PROVIDERS: PCP Family Medicine | DX: R30.0 Dysuria (principal) | CPT/HCPCS: 87086 ==